=== PATIENT | male | born 1965 | race Caucasian/White ===

== ENCOUNTER 2018-11-16 08:38 | Inpatient (IN) | payer OTHER ==
[2018-11-16 09:19] VITALS: BMI 23.1
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
[2018-11-16] MEDS ORDERED: MAG HYDROX/AL HYDROX/SIMETH 30 ML UNIT-DOSE CUP PO PRN (09:56)
[2018-11-16] MEDS ORDERED: MAGNESIUM CITRATE 300 ML BOTTLE PO PRN (09:56)
[2018-11-16] MEDS ORDERED: MENTHOL/PHENOL 1 EACH UD MM PRN (09:56)
[2018-11-16] MEDS ORDERED: hydrOXYzine PAMOATE 25 MG CAPSULE (FP) PO PRN (09:56)
[2018-11-16] MEDS ORDERED: chlordiazePOXIDE HCL 25 MG CAPSULE PO PRN (09:56)
[2018-11-16] MEDS ORDERED: MAGNESIUM HYDROX 2400MG/30ML ORAL SUSPENSION 30 ML CUP PO PRN (09:56)
[2018-11-16] MEDS ORDERED: METHOCARBAMOL 500 MG TABLET PO PRN (09:56)
[2018-11-16] MEDS ORDERED: BISMUTH SUBSALICYLATE 262 MG/15 ML BTL PO PRN (09:56)
[2018-11-16] MEDS ORDERED: ACETAMINOPHEN 325 MG TABLET (FP) PO PRN ×2 (09:56)
[2018-11-16] MEDS ORDERED: IBUPROFEN 400 MG TABLET (FP) PO PRN (09:56)
[2018-11-16] MEDS: PRENATAL VITAMINS W/ FOLIC ACID TABLET (FP) PO SCH (10:46)
[2018-11-16] MEDS: chlordiazePOXIDE HCL 25 MG CAPSULE PO SCH ×3 (10:46→22:31)
[2018-11-16 12:05] LABS: HEMATOCRIT 45.4 % (35.4-49); HEMOGLOBIN 15.1 GM/dL (11.7-16.9); MCH 32.5 pg (25.7-33.7); MCHC 33.2 g/dl (32.0-35.9); MEAN PLT VOLUME 7.3 fl (7.5-11.1); PLATELET COUNT 269 K/MM3 (134-434); RBC 4.63 M/mm3 (4.00-5.60); RDW 14.7 % (11.9-15.9); WHITE BLOOD COUNT 7.9 K/mm3 (4.0-10.0)
[2018-11-16 12:16] LABS: ALBUMIN 4.3 g/dl (3.4-5.0); BILIRUBIN,TOTAL 0.6 mg/dL (0.2-1); CALCIUM 9.2 mg/dL (8.5-10.1); CREATININE 0.7 mg/dL (0.55-1.3); POTASSIUM 4.2 mmol/L (3.5-5.1); TOT PROT 7.4 g/dl (6.4-8.2)
--- NOTE | 2018-11-16 15:10 | EKG ---
Test Reason : Blood Pressure : / mmHG Vent. Rate : 062 BPM Atrial Rate : 062 BPM P-R Int : 122 ms QRS Dur : 086 ms QT Int : 458 ms P-R-T Axes : 067 038 055 degrees QTc Int : 464 ms NORMAL SINUS RHYTHM NORMAL ECG NO PREVIOUS ECGS AVAILABLE Confirmed by DAMIEN BACA MD ([id number]) on 11/16/2018 3:10:05 PM Referred By: Confirmed By:DAMIEN BACA MD
[2018-11-16] MEDS: THIAMINE HCL 100 MG TABLET (FP) PO SCH (22:31)
[2018-11-17] MEDS: chlordiazePOXIDE HCL 25 MG CAPSULE PO SCH ×4 (05:14→22:13)
--- NOTE | 2018-11-17 10:28 | PN ---
[facility] CIWA - CIWA Score Nausea/Vomitin-No Nausea/No Vomiting Muscle Tremors: 3 Anxiety: 3 Agitation: 3 Paroxysmal Sweats: 3 Orientation: 0-Oriented Tacttile Disturbances: 0-None Auditory Disturbances: 0-None Visual Disturbances: 0-None Headache: 0-None Present CIWA-Ar Total Score: 12 S Progress Note (SOAP) Subjective: sweats agitation tired body aches Objective: 11/17/18 10:28 Vital Signs Temperature 97 F L 11/17/18 09:33 Pulse Rate 80 11/17/18 09:33 Respiratory Rate 18 11/17/18 09:33 Blood Pressure 117/80 11/17/18 09:33 O2 Sat by Pulse Oximetry (%) Laboratory Tests 11/16/18 11/16/18 11/16/18 10:00 10:00 10:00 WBC 7.9 RBC 4.63 Hgb 15.1 Hct 45.4 MCV 98.0 H MCH 32.5 MCHC 33.2 RDW 14.7 Plt Count 269 MPV 7.3 L Sodium 139 Potassium 4.2 Chloride 103 Carbon Dioxide 27 Anion Gap 9 BUN 11 Creatinine 0.7 Est GFR (CKD-EPI)AfAm 124.00 Est GFR (CKD-EPI)NonAf 106.99 Random Glucose 64 L Calcium 9.2 Total Bilirubin 0.6 AST 43 H ALT 38 Alkaline Phosphatase 81 Total Protein 7.4 Albumin 4.3 Urine Color Urine Appearance Urine pH Urine pH (Auto) Ur Specific Lake Specific Lake (Auto) Urine Protein Urine Protein (Auto) Urine Glucose (UA) Glucose (UA)(Auto) Urine Ketones Urine Ketones (Auto) Urine Blood Urine Blood (Auto) Urine Nitrite Urine Nitrite (Auto) Urine Bilirubin Urine Urobilinogen Urine Urobilinogen (Auto) Ur Leukocyte Esterase Leukocyte Esterase (Auto) Urine WBC (Auto) Urine RBC (Auto) Urine Casts (Auto) U Pathogenic Cast Auto U Epithel Cells (Auto) U Sm Round Cell (Auto) Urine Crystals (Auto) Urine Bacteria (Auto) Urine Yeast (Auto) RPR Titer Nonreactive HIV 1&2 Antibody Screen HIV P24 Antigen 11/16/18 11/16/18 11/16/18 10:00 15:18 18:40 WBC RBC Hgb Hct MCV MCH MCHC RDW Plt Count MPV Sodium Potassium Chloride Carbon Dioxide Anion Gap BUN Creatinine Est GFR (CKD-EPI)AfAm Est GFR (CKD-EPI)NonAf Random Glucose Calcium Total Bilirubin AST ALT Alkaline Phosphatase Total Protein Albumin Urine Color Cancelled Yellow Urine Appearance Cancelled Clear Urine pH Cancelled Urine pH (Auto) 5.5 Ur Specific Lake Cancelled Specific Lake (Auto) 1.025 Urine Protein Cancelled Urine Protein (Auto) Negative Urine Glucose (UA) Cancelled Glucose (UA)(Auto) Negative Urine Ketones Cancelled Urine Ketones (Auto) Trace Urine Blood Cancelled Urine Blood (Auto) Negative Urine Nitrite Cancelled Urine Nitrite (Auto) Negative Urine Bilirubin Cancelled Negative Urine Urobilinogen Cancelled Urine Urobilinogen (Auto) 0.2 Ur Leukocyte Esterase Cancelled Leukocyte Esterase (Auto) Negative Urine WBC (Auto) Cancelled Urine RBC (Auto) Cancelled Urine Casts (Auto) Cancelled U Pathogenic Cast Auto Cancelled U Epithel Cells (Auto) Cancelled U Sm Round Cell (Auto) Cancelled Urine Crystals (Auto) Cancelled Urine Bacteria (Auto) Cancelled Urine Yeast (Auto) Cancelled RPR Titer HIV 1&2 Antibody Screen Negative HIV P24 Antigen Negative aaox3 ambulating no acute distress Assessment: 11/17/18 10:28 withdrawal sx Plan: continue detox increase fluids
[2018-11-17] MEDS: PRENATAL VITAMINS W/ FOLIC ACID TABLET (FP) PO SCH (11:14)
[2018-11-17] MEDS: MELATONIN 5 MG TABLETS PO PRN (22:13)
[2018-11-17] MEDS: THIAMINE HCL 100 MG TABLET (FP) PO SCH (22:13)
[2018-11-18] MEDS: chlordiazePOXIDE HCL 25 MG CAPSULE PO SCH (05:12)
[2018-11-18] MEDS: PRENATAL VITAMINS W/ FOLIC ACID TABLET (FP) PO SCH (10:17)
[2018-11-18] MEDS: chlordiazePOXIDE HCL 10 MG CAPSULE PO SCH ×3 (10:17→21:59)
--- NOTE | 2018-11-18 10:27 | PN ---
[facility] CIWA - CIWA Score Nausea/Vomitin-No Nausea/No Vomiting Muscle Tremors: 3 Anxiety: 3 Agitation: 2 Paroxysmal Sweats: 2 Orientation: 0-Oriented Tacttile Disturbances: 0-None Auditory Disturbances: 0-None Visual Disturbances: 0-None Headache: 0-None Present CIWA-Ar Total Score: 10 S Progress Note (SOAP) Subjective: feet fungas restless legs chills agitation sweats Objective: 11/18/18 10:26 Vital Signs Temperature 97.7 F 11/18/18 09:21 Pulse Rate 75 11/18/18 09:21 Respiratory Rate 18 11/18/18 09:21 Blood Pressure 106/85 11/18/18 09:21 O2 Sat by Pulse Oximetry (%) Laboratory Tests 11/16/18 11/16/18 11/16/18 10:00 10:00 10:00 WBC 7.9 RBC 4.63 Hgb 15.1 Hct 45.4 MCV 98.0 H MCH 32.5 MCHC 33.2 RDW 14.7 Plt Count 269 MPV 7.3 L Sodium 139 Potassium 4.2 Chloride 103 Carbon Dioxide 27 Anion Gap 9 BUN 11 Creatinine 0.7 Est GFR (CKD-EPI)AfAm 124.00 Est GFR (CKD-EPI)NonAf 106.99 Random Glucose 64 L Calcium 9.2 Total Bilirubin 0.6 AST 43 H ALT 38 Alkaline Phosphatase 81 Total Protein 7.4 Albumin 4.3 Urine Color Urine Appearance Urine pH Urine pH (Auto) Ur Specific Bradley Specific Bradley (Auto) Urine Protein Urine Protein (Auto) Urine Glucose (UA) Glucose (UA)(Auto) Urine Ketones Urine Ketones (Auto) Urine Blood Urine Blood (Auto) Urine Nitrite Urine Nitrite (Auto) Urine Bilirubin Urine Urobilinogen Urine Urobilinogen (Auto) Ur Leukocyte Esterase Leukocyte Esterase (Auto) Urine WBC (Auto) Urine RBC (Auto) Urine Casts (Auto) U Pathogenic Cast Auto U Epithel Cells (Auto) U Sm Round Cell (Auto) Urine Crystals (Auto) Urine Bacteria (Auto) Urine Yeast (Auto) RPR Titer Nonreactive HIV 1&2 Antibody Screen HIV P24 Antigen 11/16/18 11/16/18 11/16/18 10:00 15:18 18:40 WBC RBC Hgb Hct MCV MCH MCHC RDW Plt Count MPV Sodium Potassium Chloride Carbon Dioxide Anion Gap BUN Creatinine Est GFR (CKD-EPI)AfAm Est GFR (CKD-EPI)NonAf Random Glucose Calcium Total Bilirubin AST ALT Alkaline Phosphatase Total Protein Albumin Urine Color Cancelled Yellow Urine Appearance Cancelled Clear Urine pH Cancelled Urine pH (Auto) 5.5 Ur Specific Bradley Cancelled Specific Bradley (Auto) 1.025 Urine Protein Cancelled Urine Protein (Auto) Negative Urine Glucose (UA) Cancelled Glucose (UA)(Auto) Negative Urine Ketones Cancelled Urine Ketones (Auto) Trace Urine Blood Cancelled Urine Blood (Auto) Negative Urine Nitrite Cancelled Urine Nitrite (Auto) Negative Urine Bilirubin Cancelled Negative Urine Urobilinogen Cancelled Urine Urobilinogen (Auto) 0.2 Ur Leukocyte Esterase Cancelled Leukocyte Esterase (Auto) Negative Urine WBC (Auto) Cancelled Urine RBC (Auto) Cancelled Urine Casts (Auto) Cancelled U Pathogenic Cast Auto Cancelled U Epithel Cells (Auto) Cancelled U Sm Round Cell (Auto) Cancelled Urine Crystals (Auto) Cancelled Urine Bacteria (Auto) Cancelled Urine Yeast (Auto) Cancelled RPR Titer HIV 1&2 Antibody Screen Negative HIV P24 Antigen Negative aaox3 ambulating no acute distress Assessment: 11/18/18 10:27 withdrawal sx Plan: continue detox increase fluids
[2018-11-18] MEDS ORDERED: chlordiazePOXIDE HCL 10 MG CAPSULE PO PRN (11:00)
[2018-11-18] MEDS: TOLNAFTATE 1% CREAM 15 GM TUBE TP SCH ×2 (13:09→22:00)
[2018-11-18] MEDS: THIAMINE HCL 100 MG TABLET (FP) PO SCH (21:57)
[2018-11-18] MEDS: MELATONIN 5 MG TABLETS PO PRN (21:57)
[2018-11-19] MEDS: chlordiazePOXIDE HCL 10 MG CAPSULE PO SCH (06:12)
[2018-11-19] MEDS ORDERED: MELATONIN 5 MG TABLETS PO PRN (08:21)
--- NOTE | 2018-11-19 09:24 | PN ---
[facility] Progress Note (SOAP) Subjective: feeling better sweats anxiety Objective: 11/19/18 09:22 Vital Signs Temperature 97.7 F 11/19/18 07:01 Pulse Rate 63 11/19/18 07:01 Respiratory Rate 18 11/19/18 07:01 Blood Pressure 110/72 11/19/18 07:01 O2 Sat by Pulse Oximetry (%) aaox3 ambulating no acute distress Assessment: 11/19/18 09:23 mild withdrawal sx Plan: continue detox increase fluids d/c in am
[2018-11-19] MEDS: TOLNAFTATE 1% CREAM 15 GM TUBE TP SCH (10:02)
[2018-11-19] MEDS: PRENATAL VITAMINS W/ FOLIC ACID TABLET (FP) PO SCH (10:03)
[2018-11-19 10:38] VITALS: BP 131/50; PULSE 84; TEMP 98.1
[2018-11-19] MEDS ORDERED: chlordiazePOXIDE HCL 10 MG CAPSULE PO SCH (11:00)
--- NOTE | 2018-11-19 15:05 | DS ---
[facility] Detox Discharge Summary Admission Date: 11/16/18 Discharge Date: 11/19/18 - History Present History: Alcohol Dependence, Cocaine Dependence - Physical Exam Results Vital Signs: Vital Signs Temperature 98.1 F 11/19/18 10:37 Pulse Rate 84 11/19/18 10:37 Respiratory Rate 18 11/19/18 10:37 Blood Pressure 131/50 L 11/19/18 10:37 O2 Sat by Pulse Oximetry (%) - Treatment Hospital Course: Detox Protocol Followed, Detoxed Safely, Responded well, Discharged Condition Good, Rehab Referral Accepted - Medication Discharge Medications: Ambulatory Orders NK [No Known Home Medication] 11/16/18 - Diagnosis (1) Alcohol dependence with uncomplicated withdrawal Status: Chronic (2) Cocaine abuse Status: Acute (3) Dehydration Status: Acute (4) Depression Status: Acute (5) H/O fracture of nose Status: Acute (6) Nicotine dependence Status: Chronic Qualifiers: Nicotine product type: cigarettes Substance use status: uncomplicated Qualified Code(s): F17.210 - Nicotine dependence, cigarettes, uncomplicated (7) Syncope Status: Acute - AMA Did Patient Leave Against Medical Advice: No (going home)
== END 2018-11-19 14:28 | disposition home or self-care (01) | DRG 774 ==
LOC: YASAS 08:38 → Y6N 10:00
PROVIDERS: ADMIT Surgery; ATTEND Surgery
PROC: HZ2ZZZZ Detoxification Services for Substance Abuse Treatment (ICD-10-PCS; principal; 2018-11-16)
DX: F10.230 Alcohol dependence with withdrawal, uncomplicated (principal); F14.10 Cocaine abuse, uncomplicated; F17.210 Nicotine dependence, cigarettes, uncomplicated; F32.9 Major depressive disorder, single episode, unspecified; B35.3 Tinea pedis
CPT/HCPCS: 36415; 80053; 81003; 85027; 86593; 87389; 93005; 93010

== ENCOUNTER 2023-09-30 21:24 | Inpatient (IN) | payer OTHER ==
[2023-09-30 21:56] VITALS: BMI 22.6
[2023-09-30] MEDS ORDERED: LOPERAMIDE HCL 2 MG CAPSULE PO PRN (22:07)
[2023-09-30] MEDS ORDERED: IBUPROFEN 600 MG TABLET (FP) PO PRN (22:07)
[2023-09-30] MEDS ORDERED: BENZONATATE 200 MG CAPSULE PO PRN (22:07)
[2023-09-30] MEDS ORDERED: NALOXONE HCL (KLOXXADO) 8 MG SPRAY NS PRN (22:07)
[2023-09-30] MEDS ORDERED: POLYETHYLENE GLYCOL (HEALTHYLAX) 3350 17 GM PACKET PO PRN (22:07)
[2023-09-30] MEDS ORDERED: MAGNESIUM HYDROX 2400MG/30ML ORAL SUSPENSION 30 ML CUP PO PRN (22:07)
[2023-09-30] MEDS ORDERED: BISMUTH SUBSALICYLATE 524 MG/30 ML PO PRN (22:07)
[2023-09-30] MEDS ORDERED: ONDANSETRON *ODT* 4 MG TABLET SL PRN (22:07)
[2023-09-30] MEDS ORDERED: BENZOCAINE/MENTHOL (CHLORASEPTIC ) LOZENGE MM PRN (22:07)
[2023-09-30] MEDS ORDERED: ACETAMINOPHEN 325 MG TABLET (FP) PO PRN (22:07)
[2023-09-30] MEDS ORDERED: NICOTINE POLACRILEX 2 MG GUM BUC PRN (22:07)
[2023-09-30] MEDS ORDERED: guaiFENesin 600 MG TABLET.ER (FP) PO PRN (22:07)
[2023-09-30] MEDS ORDERED: NALOXONE HCL 0.4 MG/ML VIAL IM PRN (22:07)
[2023-09-30] MEDS ORDERED: MAG HYDROX/AL HYDROX/SIMETH 30 ML UNIT-DOSE CUP PO PRN (22:07)
[2023-09-30] MEDS ORDERED: IBUPROFEN 400 MG TABLET (FP) PO PRN (22:07)
[2023-09-30] MEDS ORDERED: DICYCLOMINE HCL 10 MG CAPSULE PO PRN (22:07)
[2023-10-01] MEDS: METHOCARBAMOL 500 MG TABLET PO PRN (06:23)
[2023-10-01] MEDS: hydrOXYzine PAMOATE 25 MG CAPSULE (FP) PO PRN (06:23)
[2023-10-01 09:08] LABS: HEMATOCRIT 43.5 % (35.4-49); HEMOGLOBIN 14.8 GM/dL (11.7-16.9); MCH 32.6 pg (25.7-33.7); MCHC 33.9 g/dl (32.0-35.9); MEAN CELL VOLUME 95.9 fl (80-96); MEAN PLT VOLUME 7.2 fl (7.5-11.1); PLATELET COUNT 227 10^3/uL (134-434); RBC 4.53 M/mm3 (4.00-5.60); RDW 13.9 % (11.9-15.9); WHITE BLOOD COUNT 4.6 K/mm3 (4.0-10.0)
[2023-10-01 09:29] LABS: CHLORIDE 106 mmol/L (98-107); POTASSIUM 4.8 mmol/L (3.5-5.1); SODIUM 141 mmol/L (136-145)
[2023-10-01 09:41] LABS: BLOOD UREA NITROGEN 14.8 mg/dL (7-18)
[2023-10-01 09:44] LABS: ALBUMIN 3.7 g/dl (3.4-5.0); CREATININE 0.8 mg/dL (0.55-1.3); GLUCOSE,RANDOM 119 mg/dL (74-106)
[2023-10-01 09:46] LABS: ANION GAP 7 mmol/L (4-13); CALCIUM 9.5 mg/dL (8.5-10.1); CO2 28 mmol/L (21-32); SGPT/ALT 34 U/L (13-61)
[2023-10-01 09:47] LABS: SGOT/AST 46 U/L (15-37)
[2023-10-01 09:49] LABS: ALK PHOS 52 U/L (45-117)
[2023-10-01 09:52] LABS: TOT PROT 6.5 g/dl (6.4-8.2)
[2023-10-01] MEDS: PRENATAL VITAMINS W/ FOLIC ACID TABLET (FP) PO SCH (09:57)
[2023-10-01 09:58] LABS: BILIRUBIN,TOTAL 0.5 mg/dL (0.2-1)
[2023-10-01] MEDS ORDERED: diazePAM 5 MG TABLET PO PRN (09:59)
[2023-10-01 10:18] VITALS: BP 131/65; PULSE 66; RESP 17; TEMP 97.7
[2023-10-01] MEDS: diazePAM 5 MG TABLET PO SCH (10:32)
[2023-10-01] MEDS ORDERED: THIAMINE HCL 100 MG TABLET (FP) PO SCH (22:00)
[2023-10-01] MEDS ORDERED: MELATONIN 5 MG TABLETS PO SCH (22:00)
[2023-10-03] MEDS ORDERED: diazePAM 5 MG TABLET PO SCH (06:00)
[2023-10-04] MEDS ORDERED: diazePAM 5 MG TABLET PO SCH (06:00)
[2023-10-05] MEDS ORDERED: diazePAM 5 MG TABLET PO ONE (06:00)
== END 2023-10-01 11:32 | disposition left against medical advice (07) | DRG 770 ==
LOC: YASAS 21:24 → Y3N 22:47
PROVIDERS: ADMIT Allergy & Immunology; ATTEND Surgery
PROC: HZ2ZZZZ Detoxification Services for Substance Abuse Treatment (ICD-10-PCS; principal; 2023-09-30)
DX: F10.230 Alcohol dependence with withdrawal, uncomplicated (principal); F14.20 Cocaine dependence, uncomplicated; F17.210 Nicotine dependence, cigarettes, uncomplicated; F32.A Depression, unspecified; Z59.01 Sheltered homelessness; Z88.8 Allergy status to other drugs, medicaments and biological substances
CPT/HCPCS: 36415; 80053; 80307; 85027; 86780; 93005; 93010

== ENCOUNTER 2023-10-23 11:22 | Inpatient (IN) | payer OTHER ==
[2023-10-23 12:25] VITALS: BMI 23.6
[2023-10-23] MEDS ORDERED: IBUPROFEN 400 MG TABLET (FP) PO PRN (12:38)
[2023-10-23] MEDS ORDERED: DICYCLOMINE HCL 10 MG CAPSULE PO PRN (12:38)
[2023-10-23] MEDS ORDERED: POLYETHYLENE GLYCOL (HEALTHYLAX) 3350 17 GM PACKET PO PRN (12:38)
[2023-10-23] MEDS ORDERED: guaiFENesin 600 MG TABLET.ER (FP) PO PRN (12:38)
[2023-10-23] MEDS ORDERED: hydrOXYzine PAMOATE 25 MG CAPSULE (FP) PO PRN (12:38)
[2023-10-23] MEDS ORDERED: BENZOCAINE/MENTHOL (CHLORASEPTIC ) LOZENGE MM PRN (12:38)
[2023-10-23] MEDS ORDERED: BENZONATATE 200 MG CAPSULE PO PRN (12:38)
[2023-10-23] MEDS ORDERED: NALOXONE HCL 0.4 MG/ML VIAL IM PRN (12:38)
[2023-10-23] MEDS ORDERED: ACETAMINOPHEN 325 MG TABLET (FP) PO PRN (12:38)
[2023-10-23] MEDS ORDERED: METHOCARBAMOL 500 MG TABLET PO PRN (12:38)
[2023-10-23] MEDS ORDERED: BISMUTH SUBSALICYLATE 524 MG/30 ML PO PRN (12:38)
[2023-10-23] MEDS ORDERED: MAG HYDROX/AL HYDROX/SIMETH 30 ML UNIT-DOSE CUP PO PRN (12:38)
[2023-10-23] MEDS ORDERED: MAGNESIUM HYDROX 2400MG/30ML ORAL SUSPENSION 30 ML CUP PO PRN (12:38)
[2023-10-23] MEDS ORDERED: LOPERAMIDE HCL 2 MG CAPSULE PO PRN (12:38)
[2023-10-23] MEDS ORDERED: NALOXONE HCL (KLOXXADO) 8 MG SPRAY NS PRN (12:38)
[2023-10-23] MEDS ORDERED: IBUPROFEN 600 MG TABLET (FP) PO PRN (12:38)
[2023-10-23] MEDS ORDERED: ONDANSETRON *ODT* 4 MG TABLET SL PRN (12:38)
[2023-10-23] MEDS: chlordiazePOXIDE HCL 25 MG CAPSULE PO PRN (13:16)
[2023-10-23] MEDS: chlordiazePOXIDE HCL 25 MG CAPSULE PO SCH (17:17)
[2023-10-23] MEDS: THIAMINE HCL 100 MG TABLET (FP) PO SCH (22:46)
[2023-10-23] MEDS: MELATONIN 5 MG TABLETS PO SCH (22:46)
[2023-10-24] MEDS: PRENATAL VITAMINS W/ FOLIC ACID TABLET (FP) PO SCH (10:32)
[2023-10-24 11:53] LABS: POTASSIUM 4.5 mmol/L (3.5-5.1)
[2023-10-24 12:02] LABS: HEMATOCRIT 44.3 % (35.4-49); HEMOGLOBIN 14.7 GM/dL (11.7-16.9); MCH 32.7 pg (25.7-33.7); MCHC 33.3 g/dl (32.0-35.9); MEAN CELL VOLUME 98.2 fl (80-96); MEAN PLT VOLUME 8.1 fl (7.5-11.1); RBC 4.52 M/mm3 (4.00-5.60); RDW 14.4 % (11.9-15.9)
[2023-10-24 12:03] LABS: PLATELET COUNT 269 10^3/uL (134-434)
[2023-10-24 12:04] LABS: CALCIUM 9.1 mg/dL (8.5-10.1)
[2023-10-24 12:05] LABS: ALBUMIN 4.3 g/dl (3.4-5.0); BLOOD UREA NITROGEN 13.2 mg/dL (7-18)
[2023-10-24 12:07] LABS: CREATININE 0.8 mg/dL (0.55-1.3)
[2023-10-24 12:09] LABS: TOT PROT 7.7 g/dl (6.4-8.2)
[2023-10-24 12:11] LABS: BILIRUBIN,TOTAL 0.9 mg/dL (0.2-1)
[2023-10-24] MEDS: LACTULOSE 20 GM/30 ML UDC (FOR ORAL USE ONLY) PO SCH (17:30)
[2023-10-25] MEDS: chlordiazePOXIDE HCL 25 MG CAPSULE PO SCH (05:49)
[2023-10-25 06:59] VITALS: RESP 16
[2023-10-25 09:24] VITALS: BP 115/58; PULSE 61; TEMP 97.8
[2023-10-26] MEDS ORDERED: chlordiazePOXIDE HCL 10 MG CAPSULE PO PRN
[2023-10-26] MEDS ORDERED: chlordiazePOXIDE HCL 10 MG CAPSULE PO SCH (05:00)
[2023-10-27] MEDS ORDERED: chlordiazePOXIDE HCL 10 MG CAPSULE PO SCH (05:00)
[2023-10-28] MEDS ORDERED: chlordiazePOXIDE HCL 10 MG CAPSULE PO ONE (05:00)
== END 2023-10-25 10:34 | disposition left against medical advice (07) | DRG 770 ==
LOC: YASAS 11:22 → Y6N 12:34
PROVIDERS: ADMIT Allergy & Immunology; ATTEND Surgery
PROC: HZ2ZZZZ Detoxification Services for Substance Abuse Treatment (ICD-10-PCS; principal; 2023-10-23)
DX: F10.230 Alcohol dependence with withdrawal, uncomplicated (principal); F14.20 Cocaine dependence, uncomplicated; F12.20 Cannabis dependence, uncomplicated; F17.210 Nicotine dependence, cigarettes, uncomplicated; F20.9 Schizophrenia, unspecified; F32.A Depression, unspecified; E72.20 Disorder of urea cycle metabolism, unspecified; Z88.8 Allergy status to other drugs, medicaments and biological substances
CPT/HCPCS: 36415; 80053; 80307; 82140; 85027; 86780; 93005; 93010

== ENCOUNTER 2024-11-24 01:38 | Inpatient (IN) | payer OTHER ==
[2024-11-24 01:42] VITALS: BMI 22.7
[2024-11-24] MEDS ORDERED: hydrOXYzine PAMOATE 25 MG CAPSULE (FP) PO PRN (02:12)
[2024-11-24] MEDS ORDERED: BENZONATATE 200 MG CAPSULE PO PRN (02:12)
[2024-11-24] MEDS ORDERED: IBUPROFEN 400 MG TABLET (FP) PO PRN (02:12)
[2024-11-24] MEDS ORDERED: NALOXONE (NARCAN) HCL 4 MG/0.1 ML SPRAY NS PRN (02:12)
[2024-11-24] MEDS ORDERED: NICOTINE POLACRILEX 2 MG GUM BUC PRN (02:12)
[2024-11-24] MEDS ORDERED: ONDANSETRON *ODT* 4 MG TABLET SL PRN (02:12)
[2024-11-24] MEDS ORDERED: IBUPROFEN 600 MG TABLET (FP) PO PRN (02:12)
[2024-11-24] MEDS ORDERED: POLYETHYLENE GLYCOL (HEALTHYLAX) 3350 17 GM PACKET PO PRN (02:12)
[2024-11-24] MEDS ORDERED: BISMUTH SUBSALICYLATE 524 MG/30 ML PO PRN (02:12)
[2024-11-24] MEDS ORDERED: LOPERAMIDE HCL 2 MG CAPSULE PO PRN (02:12)
[2024-11-24] MEDS ORDERED: MAGNESIUM HYDROX 2400MG/30ML ORAL SUSPENSION 30 ML CUP PO PRN (02:12)
[2024-11-24] MEDS ORDERED: guaiFENesin 600 MG TABLET.ER (FP) PO PRN (02:12)
[2024-11-24] MEDS ORDERED: DICYCLOMINE HCL 10 MG CAPSULE PO PRN (02:12)
[2024-11-24] MEDS ORDERED: BENZOCAINE/MENTHOL (CHLORASEPTIC ) LOZENGE MM PRN (02:12)
[2024-11-24] MEDS ORDERED: MAG HYDROX/AL HYDROX/SIMETH 30 ML UNIT-DOSE CUP PO PRN (02:12)
[2024-11-24] MEDS: chlordiazePOXIDE HCL 25 MG CAPSULE PO PRN (03:43)
[2024-11-24] MEDS: CEPHALEXIN MONOHYDRATE 250 MG CAPSULE (FP) PO SCH (06:17)
[2024-11-24] MEDS: ACETAMINOPHEN 325 MG TABLET (FP) PO PRN (06:18)
[2024-11-24] MEDS: PRENATAL VITAMINS W/ FOLIC ACID TABLET (FP) PO SCH (10:31)
[2024-11-24] MEDS: NICOTINE 14 MG/24 HOURS TOPICAL PATCH TD SCH (10:31)
[2024-11-24] MEDS: chlordiazePOXIDE HCL 25 MG CAPSULE PO SCH (10:35)
[2024-11-24] MEDS: BACITRACIN 0.9 GM PACKET TP SCH (10:35)
[2024-11-24 11:26] LABS: HEMATOCRIT 39.7 % (40.1-51.0); HEMOGLOBIN 13.2 g/dL (13.7-17.5); MCHC 33.2 g/dl (32.3-36.5); MEAN CELL VOLUME 92.8 fl (79.0-92.2); MEAN PLT VOLUME 9.2 fl (9.4-12.4); PLATELET COUNT 265 x10^3/uL (163-337); RDW 13.5 % (12.2-16.1)
[2024-11-24 11:28] LABS: CHLORIDE 105 mmol/L (98-107); SODIUM 140 mmol/L (136-145)
[2024-11-24 11:34] LABS: BLOOD UREA NITROGEN 8.5 mg/dL (7-18)
[2024-11-24 11:36] LABS: ALBUMIN 3.2 g/dl (3.4-5.0); ANION GAP 6 mmol/L (4-13); CALCIUM 8.9 mg/dL (8.5-10.1); CO2 29 mmol/L (21-32); GLUCOSE,RANDOM 93 mg/dL (74-106)
[2024-11-24 11:39] LABS: CREATININE 0.6 mg/dL (0.55-1.3); SGOT/AST 34 U/L (15-37); SGPT/ALT 28 U/L (13-61)
[2024-11-24 11:41] LABS: ALK PHOS 69 U/L (45-117); BILIRUBIN,TOTAL 0.5 mg/dL (0.2-1); TOT PROT 6.2 g/dl (6.4-8.2)
[2024-11-24] MEDS: MELATONIN 5 MG TABLETS PO SCH (22:43)
[2024-11-24] MEDS: THIAMINE 100 MG TABLET PO SCH (22:44)
[2024-11-25 16:51] VITALS: RESP 16
[2024-11-26] MEDS: chlordiazePOXIDE HCL 25 MG CAPSULE PO SCH (04:55)
[2024-11-26 09:24] VITALS: BP 115/67; PULSE 60; TEMP 97.9
[2024-11-26] MEDS: NALTREXONE HCL 50 MG TABLET PO SCH (11:29)
[2024-11-27] MEDS ORDERED: chlordiazePOXIDE HCL 10 MG CAPSULE PO PRN
[2024-11-27] MEDS ORDERED: chlordiazePOXIDE HCL 10 MG CAPSULE PO SCH (05:00)
[2024-11-28] MEDS ORDERED: chlordiazePOXIDE HCL 10 MG CAPSULE PO SCH (05:00)
[2024-11-29] MEDS ORDERED: chlordiazePOXIDE HCL 10 MG CAPSULE PO ONE (05:00)
== END 2024-11-26 12:06 | disposition left against medical advice (07) | DRG 770 ==
LOC: YASAS 01:38 → Y3N 03:06
PROVIDERS: ADMIT Allergy & Immunology; ATTEND Allergy & Immunology
PROC: HZ2ZZZZ Detoxification Services for Substance Abuse Treatment (ICD-10-PCS; principal; 2024-11-24)
DX: F10.230 Alcohol dependence with withdrawal, uncomplicated (principal); F12.20 Cannabis dependence, uncomplicated; F17.210 Nicotine dependence, cigarettes, uncomplicated; F20.9 Schizophrenia, unspecified; G47.00 Insomnia, unspecified; H40.9 Unspecified glaucoma; L03.116 Cellulitis of left lower limb; Z88.8 Allergy status to other drugs, medicaments and biological substances
CPT/HCPCS: 36415; 80053; 80305; 80307; 85027; 86780; 93005; 93010